=== PATIENT | female | born 1980 | race Caucasian/White ===

== ENCOUNTER → 2016-10-01 | Outpatient (CLI) | payer BC ==
--- NOTE | 2016-10-01 08:45 | US ---
EXAMINATION TYPE: US pelvic complete DATE OF EXAM: 10/01/2016 COMPARISON: NONE CLINICAL HISTORY: 36-year-old female N92.1 Excessive and frequent menstruation with pelvic pain durin g first 2 days of menses, tubal ligation 11 years ago TECHNIQUE: Transabdominal (TA) FINDINGS: Date of LMP: 1.5 weeks ago Uterus: Anteverted measuring 8.6 x 4.2 x 5.6 cm slight myometrial heterogeneity. Endometrial Stripe: 1.0 cm, within normal limits. Right Ovary: 4.0 x 1.7 x 2.7 cm for a volume of 9.3 mL. Left Ovary: 3.7 x 2.3 x 2.2 cm for a volume of 9.6 mL. Follicular changes present on both sides. Small amount of pelvic free fluid likely physiologic. No evident adnexal abnormality. IMPRESSION: Small amount of pelvic free fluid likely physiologic. Slight myometrial heterogeneity may be seen in the setting of diffuse small fibroid change or adenomyosis.
== END | disposition home or self-care (01) ==
LOC: RADUSWWP 06:56
PROVIDERS: ATTEND Family Medicine
DX: N92.1 Excessive and frequent menstruation with irregular cycle (principal)
CPT/HCPCS: 76856

== ENCOUNTER → 2016-11-03 | Outpatient (CLI) | payer BC ==
[2016-11-03 11:06] LABS: Basophils % (A) 1 %; CH 33.1; CHCM 33.3; Eosinophils # (A) 0.2 k/uL (0-0.7); Eosinophils % (A) 3 %; HCT 41.9 % (34.0-46.0); HDW 2.12; HGB 13.2 gm/dL (11.4-16.0); Luc # (Auto) 0.11; Luc % (Auto) 2; Lymphocytes # (A) 2.1 k/uL (1.0-4.8); Lymphocytes % (A) 30 %; MCH 31.5 pg (25.0-35.0); MCHC 31.5 g/dL (31.0-37.0); MCV 99.7 fL (80.0-100.0); Mean Platelet Volume 8.8; Monocytes # (A) 0.3 k/uL (0-1.0); Monocytes % (A) 5 %; Neutrophils % (A) 60 %; RDW 12.9 % (11.5-15.5); WBC 6.8 k/uL (3.8-10.6); WBC (Perox) 6.91
== END | disposition home or self-care (01) ==
LOC: LABPAT 10:38
PROVIDERS: ATTEND Obstetrics & Gynecology
DX: Z01.812 Encounter for preprocedural laboratory examination (principal)
CPT/HCPCS: 85025

== ENCOUNTER 2016-11-10 06:29 | Day surgery (SDC) | payer BC ==
[2016-11-03 12:56] VITALS: BMI 25.0
--- NOTE | 2016-11-09 12:31 | P.HPOB ---
History of Present Illness H&P Date: 11/09/16 Chief Complaint: Menorrhagia, dysmenorrhea This is a 36-year-old female 2 para 2, who presents for dilation and curettage with hysteroscopy and NovaSure endometrial ablation due to menorrhagia with regular cycle and dysmenorrhea. Her menses are occurring approximately every 28 days and lasting 5-7 days with the first couple days very heavy to where she has to change pads every couple hours. In addition she gets significant cramping and lower abdominal and back pain. The pain radiates down to her lower back and thighs. She occasionally has dyspareunia also. She has been using Tylenol with some relief. Her dysmenorrhea has been going on for almost 10 years. Her painful intercourse has been present since the of her last child. She has had a tubal ligation. Her pelvic ultrasound showed a uterus measuring 8.6 x 4.2 x 5.6 cm with an endometrial stripe thickness of 1 cm. Both ovaries appeared normal size with small follicular change noted. OB history: . History of 2 vaginal deliveries. Gynecologic history: She has had a tubal ligation. She was treated for chlamydia many years ago. Social history: She is and works in a factory. Review of Systems Constitutional: Denies chills, Denies fever Eyes: denies blurred vision, denies pain Ears, nose, mouth and throat: Denies headache, Denies sore throat Cardiovascular: Denies chest pain, Denies shortness of breath Respiratory: Denies cough Gastrointestinal: Reports abdominal pain Genitourinary: Reports dysmenorrhea, Reports dyspareunia, Reports pelvic pain, Denies Menstruation: Reports period heavy Musculoskeletal: Reports low back pain Integumentary: Denies pruritus, Denies rash Neurological: Denies numbness, Denies weakness Psychiatric: Denies anxiety, Denies depression Endocrine: Denies fatigue, Denies weight change Past Medical History Past Medical History: Hyperlipidemia, Musculoskeletal Disorder (Scoliosis, degenerative disc disease), Osteoarthritis (OA) Additional Past Medical History / Comment(s): arthritis luis knees and lower back , hearing loss luis ears, occ migraines History of Any Multi-Drug Resistant Organisms: None Reported Past Surgical History: Cholecystectomy, Ear Surgery, Tubal Ligation Additional Past Surgical History / Comment(s): reconstruction left ear/ tubes in ears, Past Anesthesia/Blood Transfusion Reactions: Motion Sickness, Postoperative Nausea & Vomiting (PONV) Additional Past Anesthesia/Blood Transfusion Reaction / Comment(s): hx PONV with general Past Psychological History: No Psychological Hx Reported Smoking Status: Current every day smoker Past Alcohol Use History: None Reported Past Drug Use History: None Reported - Past Family History Mother Family Medical History: Cancer (Cervical) Medications and Allergies Home Medications Medication Instructions Recorded Confirmed Type Acetaminophen Tab [Tylenol Tab] 1,000 mg PO Q6HR PRN 11/03/16 11/03/16 History Cholecalciferol [Vitamin D3] 5,000 unit PO DAILY 11/03/16 11/03/16 History [place]-3 Fatty Acids/Fish Oil [Fish 1 each PO DAILY 11/03/16 11/03/16 History Oil 1,000 mg Softgel] Allergies Allergy/AdvReac Type Severity Reaction Status Date / Time Milk Containing Products Allergy congestion Verified 11/03/16 12:46 [Dairy] pollen extracts Allergy congestion Verified 11/03/16 12:46 wheat Allergy congestion Verified 11/03/16 12:46 Exam Osteopathic Statement: *. No significant issues noted on an osteopathic structural exam other than those noted in the History and Physical/Consult. HEENT: Within normal limits Heart: Regular rate and rhythm Lungs: Clear to auscultation bilaterally Abdomen: Soft, nontender Pelvic exam: Uterus is retroverted, nontender, with no adnexal masses palpated but tenderness noted in bilateral adnexa. Extremities: Negative Homans Assessment and Plan (1) Menorrhagia with regular cycle Status: Acute (2) Dysmenorrhea Status: Acute Plan: Proceed with dilation and curettage with hysteroscopy and NovaSure endometrial ablation. I have discussed the risks, benefits, and alternative therapies for the above- mentioned procedure and for both sedation/anesthesia as well as necessary blood products administration, if indicated, as they pertain to this patient. The patient has indicated her understanding and acceptance of the risks and procedures discussed.
[~2016-11-10 06:29] MED LIST: DEXAMETHASONE SOD PHOSPHATE 10 MG/ML 1 ML VIAL IV ONE; HYDROmorphone 1 MG/ML 1 ML SYRINGE IVP PRN; LACTATED RINGERS 1,000 ML IV SCH; LIDOCAINE 1% 20 ML VIAL (10MG/ML) FOR IV START INTRADERMA PRN; ONDANSETRON 4 MG/2 ML VIAL IVP ONE; Pre Op ABX Message 1 EACH MISC MISCELLANE ONE; SCOPOLAMINE 1.5MG/72HR PATCH TRANSDERM ONE
[2016-11-10] MEDS ORDERED: GLYCOPYRROLATE 0.2 MG/ML 2 ML VIAL ONE (07:34)
[2016-11-10] MEDS ORDERED: fentaNYL (PF) 50 MCG/ML 2 ML AMP ONE (07:34)
[2016-11-10] MEDS ORDERED: MIDAZOLAM 2 MG/2 ML VIAL ONE (07:34)
[2016-11-10] MEDS ORDERED: PROPOFOL 10 MG/ML 20 ML VIAL IV ONE (07:34)
[2016-11-10] MEDS ORDERED: LIDOCAINE 1% INJ 10MG/ML (20 ML MDV) ONE (07:34)
[2016-11-10] MEDS ORDERED: KETOROLAC 30 MG/ML 1 ML VIAL ONE (07:34)
--- NOTE | 2016-11-10 08:01 | P.OP ---
Date of Procedure: 11/10/16 Preoperative Diagnosis: Menorrhagia with regular cycle Dysmenorrhea Postoperative Diagnosis: Same Procedure(s) Performed: Hysteroscopy with dilation and curettage and NovaSure endometrial ablation Implants: Anesthesia: other (Mask general) Surgeon: Luz Kelly Estimated Blood Loss (ml): 2 Pathology: other (Endometrial curettings) Condition: stable Disposition: same day Indications for Procedure: This is a 36-year-old female 2 para 2, who presents for dilation and curettage with hysteroscopy and NovaSure endometrial ablation due to menorrhagia with regular cycle and dysmenorrhea. Her menses are occurring approximately every 28 days and lasting 5-7 days with the first couple days very heavy to where she has to change pads every couple hours. In addition she gets significant cramping and lower abdominal and back pain. The pain radiates down to her lower back and thighs. She occasionally has dyspareunia also. She has been using Tylenol with some relief. Her dysmenorrhea has been going on for almost 10 years. Her painful intercourse has been present since the of her last child. She has had a tubal ligation. Her pelvic ultrasound showed a uterus measuring 8.6 x 4.2 x 5.6 cm with an endometrial stripe thickness of 1 cm. Both ovaries appeared normal size with small follicular change noted. Operative Findings: Uterus is sounded to 7-1/2 cm. Cervix is sounded to 3 cm. Upon hysteroscopy, a fairly dyssynchronous appearance was noted. Both tubal ostia were visualized. A moderate amount of endometrial curettings are obtained. No adnexal masses are palpated. Uterus is found to be anteverted. Description of Procedure: The patient is taken to the operating room. She is placed in the dorsal lithotomy position after general anesthesia was given. She is prepped and draped in the normal sterile fashion. Bladder is drained with a catheter and then removed. Pelvic exam is performed under anesthesia. Uterus is found to be anteverted with no adnexal masses. She is placed in slight Trendelenburg position. A right angle retractor is used to visualize the cervix. The anterior lip of the cervix is grasped with a single-tooth tenaculum. Cervix is sounded to 3 cm. Uterus is sounded to 7.5 cm. Cervix is gently dilated with Wray dilators until a hysteroscope could be passed. Hysteroscopy is performed using normal saline. The above noted findings are noted. Next a polyp forceps is introduced. And a minimal amount of tissue was obtained. Next medium-sized size sharp curette was placed. A moderate amount of endometrial curettings were obtained. Next NovaSure array was inserted into the endometrial cavity. Length was set at 4.5 cm and width was determined to be 3.8 cm. Next cavity assessment was completed and passed on the first try. Next NovaSure array was fired at 94 W for 98 seconds. Next the array was removed, inspected and then discarded. Next the hysteroscope was reinserted. Uniform charring was noted. Pictures were taken. Hysteroscope was removed. Single-tooth tenaculum was removed from the anterior lip of the cervix. Minimal bleeding was noted. All other instruments removed from the vagina. Sponge counts were correct. Patient is taken to recovery room in stable condition.
[2016-11-10 08:21] VITALS: TEMP 97.3
[2016-11-10 09:33] VITALS: RESP 16
[2016-11-10 09:41] VITALS: BP 127/84; PULSE 68
== END 2016-11-10 10:02 | disposition home or self-care (01) ==
LOC: OR 06:29
PROVIDERS: ATTEND Obstetrics & Gynecology
DX: N92.0 Excessive and frequent menstruation with regular cycle (principal); N94.6 Dysmenorrhea, unspecified; N94.10 Unspecified dyspareunia; F17.200 Nicotine dependence, unspecified, uncomplicated; Z98.51 Tubal ligation status
CPT/HCPCS: 81025; 88305; 58563; J2250; J1100; J2405; J2001; J3010; J1885; J2704

== ENCOUNTER → 2017-06-15 | Outpatient (CLI) | payer BC ==
--- NOTE | 2017-06-15 07:39 | MM ---
Reason for exam: screening (asymptomatic). Baseline mammogram. History: Family history of breast cancer in maternal grandmother. Physical Findings: Nurse did not find any significant physical abnormalities on exam. MG Screening Mammo w CAD Bilateral CC and MLO view(s) were taken. There are scattered fibroglandular densities. Finding: There are typically benign round calcifications in the right breast. There is no discrete abnormality. These results were verbally communicated with the patient and result sheet given to the patient on 06/15/17. ASSESSMENT: Benign, BI-RAD 2 RECOMMENDATION: Routine screening mammogram of both breasts at age 39.
--- NOTE | 2017-06-15 08:31 | CT ---
EXAMINATION TYPE: CT brain w con DATE OF EXAM: 06/15/2017 COMPARISON: NONE HISTORY: Headaches and family history of Aneurysm CT DLP: 999.8 mGycm Automated exposure control for dose reduction was used. CONTRAST: CT scan of the head is performed with IV Contrast, patient injected with 100 mL of Isovue 300. FINDINGS: There is no abnormal enhancing mass or midline shift identified. The ventricles and sulci are within normal limits in size. The globes are intact and the visualized sinuses are clear. Postsurgical yumiko nge involving the mastoid air cells on the left. IMPRESSION: No acute intracranial process. If there is concern for aneurysm a [facility] [place] would b e recommended.
== END | disposition home or self-care (01) ==
LOC: RADMAMWWP 06:57
PROVIDERS: ATTEND Family Medicine
DX: Z12.31 Encounter for screening mammogram for malignant neoplasm of breast (principal); G44.59 Other complicated headache syndrome; Z80.3 Family history of malignant neoplasm of breast; Z82.49 Family history of ischemic heart disease and other diseases of the circulatory system
CPT/HCPCS: 77067; 70460; Q9967

== ENCOUNTER 2019-07-30 06:15 | Emergency (ER) | payer BC ==
[2019-07-30 06:23] VITALS: BP 142/87; PULSE 77; RESP 18; TEMP 98.7
[2019-07-30] MEDS ORDERED: HYDROcodone/APAP 5-325MG 1 EACH TAB PO STA (06:32)
[2019-07-30] MEDS ORDERED: ACET/COD 300 MG/30 MG STARTER PACK 6 TAB BTL PO STA (06:32)
--- NOTE | 2019-07-30 06:35 | ED ---
ENT HPI - General Chief complaint: Dental/Oral Stated complaint: tooth infection Time Seen by Provider: 07/30/19 06:24 Source: patient, family, RN notes reviewed Mode of arrival: ambulatory Limitations: no limitations - History of Present Illness Initial comments: This a 38-year-old female presents emergency Department chief complaint of lower dental pain. Patient states that she's had already to move and upper aspect. Patient states that she has very poor dentition states that she needs her teeth removed but states that she can't see her dentist currently because her dentist is closed. Denies any. Chills no trismus. Denies any difficulty swallowing. - Related Data Home Medications Medication Instructions Recorded Confirmed Acetaminophen Tab [Tylenol Tab] 1,000 mg PO Q6HR PRN 11/03/16 11/10/16 Cholecalciferol [Vitamin D3] 5,000 unit PO DAILY 11/03/16 11/10/16 [place]-3 Fatty Acids/Fish Oil [Fish 1 each PO DAILY 11/03/16 11/10/16 Oil 1,000 mg Softgel] Previous Rx's Medication Instructions Recorded Ibuprofen [Motrin] 600 mg PO Q8HR PRN #20 tab 07/30/19 Penicillin V Potassium [Pen Vee K] 500 mg PO QID #40 tablet 07/30/19 Allergies Allergy/AdvReac Type Severity Reaction Status Date / Time Milk Containing Products Allergy congestion Verified 07/30/19 06:22 [Dairy] pollen extracts Allergy congestion Verified 07/30/19 06:22 wheat Allergy congestion Verified 07/30/19 06:22 Review of Systems ROS Statement: Those systems with pertinent positive or pertinent negative responses have been documented in the HPI. ROS Other: All systems not noted in ROS Statement are negative. Past Medical History Past Medical History: No Reported History Additional Past Medical History / Comment(s): pre-canerous cells uterus, arthritis luis knees, hearing loss luis ears, begining stages of carpal tunnel luis wrists History of Any Multi-Drug Resistant Organisms: None Reported Past Surgical History: Tubal Ligation Additional Past Surgical History / Comment(s): ear surgery Past Anesthesia/Blood Transfusion Reactions: No Reported Reaction, Postoperative Nausea & Vomiting (PONV) Past Psychological History: Bipolar Smoking Status: Current every day smoker Past Alcohol Use History: Rare Past Drug Use History: Marijuana General Exam Limitations: no limitations General appearance: alert, in no apparent distress Head exam: Present: atraumatic, normocephalic, normal inspection Eye exam: Present: normal appearance, PERRL, EOMI. Absent: scleral icterus, conjunctival injection, periorbital swelling ENT exam: Present: mucous membranes moist, TM's normal bilaterally, normal external ear exam. Absent: normal oropharynx (Edentulous, multiple dental caries, dental fractures. No drainable abscess.) Neck exam: Present: normal inspection, full ROM. Absent: tenderness, meningismus, lymphadenopathy Respiratory exam: Present: normal lung sounds bilaterally. Absent: respiratory distress, wheezes, rales, rhonchi, stridor Cardiovascular Exam: Present: regular rate, normal rhythm, normal heart sounds. Absent: systolic murmur, diastolic murmur, rubs, gallop, clicks Neurological exam: Present: alert, oriented X3, CN II-XII intact, reflexes normal. Absent: motor sensory deficit Skin exam: Present: warm, dry, intact, normal color. Absent: rash Course Vital Signs 07/30/19 06:19 Temperature 98.7 F Pulse Rate 77 Respiratory 18 Rate Blood Pressure 142/87 O2 Sat by Pulse 99 Oximetry Medical Decision Making - Medical Decision Making Patient has dental infection, dental fractures and dental caries. Patient was placed on antibiotics, pain control provided. Return parameters were discussed. Disposition Clinical Impression: Dental caries, Toothache, Dental infection Disposition: HOME SELF-CARE Condition: Stable Instructions (If sedation given, give patient instructions): Toothache (ED) Additional Instructions: Please return to the Emergency Department if symptoms worsen or any other concerns. Prescriptions: Ibuprofen [Motrin] 600 mg PO Q8HR PRN #20 tab PRN Reason: Pain Penicillin V Potassium [Pen Vee K] 500 mg PO QID #40 tablet Is patient prescribed a controlled substance at d/c from ED?: No Referrals: Jalil Cho MD [Primary Care Provider] - 1-2 days Time of Disposition: 06:35
== END 2019-07-30 06:44 | disposition home or self-care (01) ==
LOC: EC 06:15
DX: K04.7 Periapical abscess without sinus (principal); K02.9 Dental caries, unspecified; K03.81 Cracked tooth; F17.200 Nicotine dependence, unspecified, uncomplicated; Z91.011 Allergy to milk products; Z91.018 Allergy to other foods; Z91.048 Other nonmedicinal substance allergy status
CPT/HCPCS: 99282

== ENCOUNTER 2019-07-30 23:51 | Emergency (ER) | payer BC ==
[2019-07-30 23:58] VITALS: BP 128/86; PULSE 87; RESP 18; TEMP 99
[2019-07-31] MEDS ORDERED: AMOXIC-POT CLAV 875MG STARTER PACK 2 TAB BTL PO STA (00:14)
[2019-07-31] MEDS ORDERED: traMADol 50 MG STARTER PACK 3 TAB BTL PO STA (00:14)
--- NOTE | 2019-07-31 00:16 | ED ---
ENT HPI - General Chief complaint: Dental/Oral Stated complaint: Recheck, tooth infection Time Seen by Provider: 07/30/19 23:52 Source: patient Mode of arrival: ambulatory Limitations: no limitations - History of Present Illness Initial comments: This patient is a 38-year-old woman presenting for left mandibular tooth pain. The patient states that this been going on for going on 2 days now. She was seen here earlier in the day and was given prescription for penicillin and ibuprofen 600 mg. The patient states that her discharge papers directed her to return should any swelling develop and she has noticed swelling along the left mandible. In addition she states that the only thing that seems to give her relief is when she takes ibuprofen 800 mg. She has taken a total of 3 doses of the penicillin. The patient is not having any difficulty with speech or swallowing or breathing. She has not noticed any neck swelling. No fever or chills. MD complaint: tooth pain Onset/Timin -: days(s) Severity: severe Quality: aching Consistency: constant Improves with: none Worsens with: none Context- Dental: history of dental caries Associated Symptoms: gum swelling, toothache - Related Data Home Medications Medication Instructions Recorded Confirmed Acetaminophen Tab [Tylenol Tab] 1,000 mg PO Q6HR PRN 11/03/16 11/10/16 Cholecalciferol [Vitamin D3] 5,000 unit PO DAILY 11/03/16 11/10/16 [place]-3 Fatty Acids/Fish Oil [Fish 1 each PO DAILY 11/03/16 11/10/16 Oil 1,000 mg Softgel] Previous Rx's Medication Instructions Recorded Ibuprofen [Motrin] 600 mg PO Q8HR PRN #20 tab 07/30/19 Penicillin V Potassium [Pen Vee K] 500 mg PO QID #40 tablet 07/30/19 Amoxicillin/Potassium Clav 1 tab PO Q12HR 10 Days #20 tab 07/31/19 [Augmentin 875-125 Tablet] Ibuprofen 800 mg PO TID #20 tablet 07/31/19 traMADol HCl [Ultram] 50 mg PO Q6H PRN #20 tab 07/31/19 Allergies Allergy/AdvReac Type Severity Reaction Status Date / Time Milk Containing Products Allergy congestion Verified 07/30/19 23:58 [Dairy] pollen extracts Allergy congestion Verified 07/30/19 23:58 wheat Allergy congestion Verified 05/09/20 23:58 Review of Systems ROS Statement: Those systems with pertinent positive or pertinent negative responses have been documented in the HPI. ROS Other: All systems not noted in ROS Statement are negative. Constitutional: Denies: fever, chills Eyes: Denies: eye pain, vision change ENT: Reports: dental pain. Denies: ear pain, throat pain, hearing loss Respiratory: Denies: cough, dyspnea Cardiovascular: Denies: chest pain, palpitations Gastrointestinal: Denies: abdominal pain, vomiting Skin: Denies: rash Neurological: Denies: headache Past Medical History Past Medical History: No Reported History Additional Past Medical History / Comment(s): pre-canerous cells uterus, arthritis luis knees, hearing loss luis ears, begining stages of carpal tunnel luis wrists History of Any Multi-Drug Resistant Organisms: None Reported Past Surgical History: Tubal Ligation Additional Past Surgical History / Comment(s): ear surgery Past Anesthesia/Blood Transfusion Reactions: No Reported Reaction, Postoperative Nausea & Vomiting (PONV) Past Psychological History: Bipolar Smoking Status: Current every day smoker Past Alcohol Use History: Rare Past Drug Use History: Marijuana General Exam Limitations: no limitations General appearance: alert, in no apparent distress Head exam: Present: atraumatic, normocephalic Eye exam: Present: normal appearance. Absent: scleral icterus, conjunctival injection ENT exam: Present: other (Patient does have a number of teeth with moderate to extensive caries. There is some soft tissue swelling adjacent to the mandible, but no palpable abscess. There is no neck or submandibular fullness or tenderness.) Neck exam: Present: normal inspection, full ROM. Absent: tenderness, meningismus, lymphadenopathy Skin exam: Present: warm, dry, intact, normal color. Absent: rash Course Vital Signs 07/30/19 23:56 Temperature 99 F Pulse Rate 87 Respiratory 18 Rate Blood Pressure 128/86 O2 Sat by Pulse 99 Oximetry Disposition Clinical Impression: Dental caries, Toothache Disposition: HOME SELF-CARE Condition: Good Instructions (If sedation given, give patient instructions): Toothache (ED) Prescriptions: Amoxicillin/Potassium Clav [Augmentin 875-125 Tablet] 1 tab PO Q12HR 10 Days #20 tab Ibuprofen 800 mg PO TID #20 tablet traMADol HCl [Ultram] 50 mg PO Q6H PRN #20 tab PRN Reason: Pain Is patient prescribed a controlled substance at d/c from ED?: Yes When asked, does pt state using other controlled substances?: Yes If prescribed controlled substance>3 days was MAPS reviewed?: Prescribed <3 Days If opioid is for acute pain is fill amount 7 days or less?: Yes If Rx opioid, was Start Talking consent form obtained?: Yes Referrals: Jalil Cho MD [Primary Care Provider] - 1-2 days
== END 2019-07-31 00:39 | disposition home or self-care (01) ==
LOC: EC 23:51
DX: K08.89 Other specified disorders of teeth and supporting structures (principal); K02.9 Dental caries, unspecified; F17.200 Nicotine dependence, unspecified, uncomplicated; Z91.011 Allergy to milk products; Z91.018 Allergy to other foods
CPT/HCPCS: 99282

== ENCOUNTER 2019-08-29 00:42 | Emergency (ER) | payer BC ==
[2019-08-29 00:46] VITALS: RESP 18; TEMP 98.3
[2019-08-29] MEDS ORDERED: KETOROLAC 30 MG/ML 1 ML VIAL IM STA (00:57)
[2019-08-29] MEDS ORDERED: ACET/COD 300 MG/30 MG STARTER PACK 6 TAB BTL PO STA (00:57)
[2019-08-29] MEDS ORDERED: MORPHINE SULFATE 4 MG/ML SYRINGE IM STA (00:57)
[2019-08-29] MEDS ORDERED: CLINDAMYCIN 150 MG CAP PO STA (00:57)
--- NOTE | 2019-08-29 01:00 | ED ---
General Adult HPI - General Chief complaint: Dental/Oral Stated complaint: Facial Abscess Time Seen by Provider: 08/29/19 00:48 Source: patient Mode of arrival: ambulatory Limitations: no limitations - History of Present Illness Initial comments: 38-year-old female patient presents to the emergency department today for evaluation of right-sided dental pain and facial swelling. Patient states that symptoms started early this morning. States she was recently treated for dental infection on the left side but did complete all antibiotics. Due to the kim virus pandemic patient's temp is has not been open, the open on Thursday. She denies any current fever or chills. Denies nausea or vomiting. Denies any difficulty swallowing. Denies any swelling beneath her tongue her tongue discomfort. Patient denies any recent rash, cough, shortness of breath, chest pain, abdominal pain, diarrhea, constipation, back pain, numbness, tingling, dizziness, weakness, hematuria, dysuria, urinary urgency, urinary frequency, headache, visual changes, or any other complaints. - Related Data Home Medications Medication Instructions Recorded Confirmed Acetaminophen Tab [Tylenol Tab] 1,000 mg PO Q6HR PRN 11/03/16 11/10/16 Cholecalciferol [Vitamin D3] 5,000 unit PO DAILY 11/03/16 11/10/16 [place]-3 Fatty Acids/Fish Oil [Fish 1 each PO DAILY 11/03/16 11/10/16 Oil 1,000 mg Softgel] Previous Rx's Medication Instructions Recorded Ibuprofen [Motrin] 600 mg PO Q8HR PRN #20 tab 07/30/19 Penicillin V Potassium [Pen Vee K] 500 mg PO QID #40 tablet 07/30/19 Amoxicillin/Potassium Clav 1 tab PO Q12HR 10 Days #20 tab 07/31/19 [Augmentin 875-125 Tablet] Ibuprofen 800 mg PO TID #20 tablet 07/31/19 traMADol HCl [Ultram] 50 mg PO Q6H PRN #20 tab 07/31/19 Clindamycin HCl 300 mg PO Q6H #40 cap 08/29/19 Ibuprofen [Motrin] 600 mg PO Q8HR PRN #30 tab 08/29/19 Allergies Allergy/AdvReac Type Severity Reaction Status Date / Time Milk Containing Products Allergy congestion Verified 08/29/19 00:47 [Dairy] pollen extracts Allergy congestion Verified 08/29/19 00:47 wheat Allergy congestion Verified 08/29/19 00:47 Review of Systems ROS Statement: Those systems with pertinent positive or pertinent negative responses have been documented in the HPI. ROS Other: All systems not noted in ROS Statement are negative. Past Medical History Past Medical History: No Reported History Additional Past Medical History / Comment(s): pre-canerous cells uterus, arthritis luis knees, hearing loss luis ears, begining stages of carpal tunnel luis wrists, History of Any Multi-Drug Resistant Organisms: None Reported Past Surgical History: Tubal Ligation Additional Past Surgical History / Comment(s): ear surgery, Past Anesthesia/Blood Transfusion Reactions: No Reported Reaction, Postoperative Nausea & Vomiting (PONV) Past Psychological History: Bipolar Smoking Status: Current every day smoker Past Alcohol Use History: Rare Past Drug Use History: Marijuana General Exam Limitations: no limitations General appearance: alert, in no apparent distress, other (This is a well- developed, well-nourished adult female patient in no acute distress. Vital signs upon presentation are temperature 98.3F, pulse 64, respirations 18, blood pressure 124/84, pulse ox 94% on room air.) Eye exam: Present: normal appearance, PERRL, EOMI. Absent: scleral icterus, conjunctival injection, periorbital swelling ENT exam: Present: normal oropharynx, mucous membranes moist, other (There is right-sided facial swelling, poor dentition to the right lower dentition. No evidence for drainable abscess. There is surrounding gingival erythema or hyperplasia.) Respiratory exam: Present: normal lung sounds bilaterally. Absent: respiratory distress, wheezes, rales, rhonchi, stridor Cardiovascular Exam: Present: regular rate, normal rhythm, normal heart sounds. Absent: systolic murmur, diastolic murmur, rubs, gallop, clicks Course Vital Signs 08/29/19 00:42 Temperature 98.3 F Pulse Rate 64 Respiratory 18 Rate Blood Pressure 124/84 O2 Sat by Pulse 94 L Oximetry Medical Decision Making - Medical Decision Making 38-year-old female patient presents to the emergency department today for evaluation of right lower dental pain and facial swelling. Physical examination did reveal poor dentition with multiple broken teeth to the right lower dentition. There is surrounding gingival erythema and hyperplasia. No evidence for drainable abscess. We will start clindamycin give pain medications. Her dentist opens Thursday she is going to call for an appointment then. She is instructed to follow-up with her primary care physician for recheck in 1-2 days. Return parameters were discussed in detail. She verbalizes understanding and agrees with this plan. Disposition Clinical Impression: Dental abscess Disposition: HOME SELF-CARE Condition: Good Instructions (If sedation given, give patient instructions): Dental Abscess (ED) Additional Instructions: Take medications as directed. Follow up with the dentist as soon as possible. Follow-up with her primary care physician for recheck in 1-2 days. Return to the emergency department immediately for any new, worsening, or concerning symptoms. Prescriptions: Clindamycin HCl 300 mg PO Q6H #40 cap Ibuprofen [Motrin] 600 mg PO Q8HR PRN #30 tab PRN Reason: Pain Is patient prescribed a controlled substance at d/c from ED?: No Referrals: Jalil Cho MD [Primary Care Provider] - 1-2 days Time of Disposition: 01:00
[2019-08-29 01:34] VITALS: BP 120/83; PULSE 75
== END 2019-08-29 01:33 | disposition home or self-care (01) ==
LOC: EC 00:42
DX: K04.7 Periapical abscess without sinus (principal); K06.1 Gingival enlargement; K08.89 Other specified disorders of teeth and supporting structures; S02.5XXA Fracture of tooth (traumatic), initial encounter for closed fracture; F17.200 Nicotine dependence, unspecified, uncomplicated; Z91.048 Other nonmedicinal substance allergy status; Z91.018 Allergy to other foods; Z91.011 Allergy to milk products; X58.XXXA Exposure to other specified factors, initial encounter
CPT/HCPCS: 99283; 96372 ×2; J2270; J1885

== ENCOUNTER → 2020-11-01 | Outpatient (CLI) | payer OTHER ==
--- NOTE | 2020-11-01 16:07 | XR ---
Result: Clinical History: Pain. Comparison: None available. Technique: 3 views of the left shoulder. Findings: The bone mineralization is appropriate for age. No acute fracture or dislocation is seen. The acromioclavicular and glenohumeral joints are preserve d . The humeral head is well-seated in the glenoid. The visualized lung is clear. Impression: No acute osseous abnormality.
== END | disposition home or self-care (01) ==
LOC: RADXRMAIN 15:47
PROVIDERS: ATTEND Emergency Medicine
DX: M25.512 Pain in left shoulder (principal)

== ENCOUNTER → 2024-02-10 | Outpatient (CLI) | payer BC ==
--- NOTE | 2024-02-12 08:34 | MM ---
Reason for Exam: Screening (asymptomatic). Last mammogram was performed 6 year(s) and 8 month(s) ago. Patient History: Menarche at age 14. First Full-Term at age 18. Hysterectomy at age 43. Patient used Hormonal Contraceptives for 4 years. Maternal grandmother had breast cancer. Risk Values: Nafisa 5 year model risk: 0.5%. NCI Lifetime model risk: 6.5%. Prior Study Comparison: 06/15/2017 Bilateral Screening Mammogram, [facility]. Tissue Density: There are scattered areas of fibroglandular density. Findings: Analyzed By CAD. There is a new group of loosely clustered microcalcifications retroareolar left breast. Additional views are recommended. Benign punctate calcifications right breast. No mass or distortion seen. Overall Assessment: Incomplete: need additional imaging evaluation, BI-RAD 0 Management: Diagnostic Mammogram of the left breast. . Patient should continue monthly self-breast exams. A clinical breast exam by your physician is recommended on an annual basis. This exam should not preclude additional follow-up of suspicious palpable abnormalities. Note on Nafisa scores and lifetime risk: 1. A Nafisa score greater than 3% is considered moderate risk. If this is the case, consider specialist referral to assess eligibility for a risk reducing agent. 2. If overall lifetime risk for the development of breast cancer is 20% or higher, the patient may qualify for future screening with alternating mammogram and breast MRI. [facility], , 02/12/2024 8:31 AM. Electronically signed and approved by: Kendall Lopez M.D. Radiologis
== END | disposition home or self-care (01) ==
LOC: RADMAMWWP 11:00
PROVIDERS: ATTEND Family Medicine
DX: Z12.31 Encounter for screening mammogram for malignant neoplasm of breast (principal); R92.323 Mammographic fibroglandular density, bilateral breasts; Z80.3 Family history of malignant neoplasm of breast
CPT/HCPCS: 77063; 77067

== ENCOUNTER → 2024-02-24 | Outpatient (CLI) | payer BC ==
--- NOTE | 2024-02-24 14:28 | MM ---
Reason for Exam: Additional evaluation requested from abnormal screening. Last screening mammogram was performed less than 1 month ago. Patient History: Menarche at age 14. First Full-Term at age 18. Hysterectomy at age 43. Patient used Hormonal Contraceptives for 4 years. Maternal grandmother had breast cancer. Risk Values: Nafisa 5 year model risk: 0.5%. NCI Lifetime model risk: 6.5%. Prior Study Comparison: 06/15/2017 Bilateral Screening Mammogram, [facility]. 02/10/2024 Bilateral MG 3D screening mammo w/cad, [facility]. Tissue Density: Left: The breasts are heterogeneously dense, which may obscure small masses. Findings: Analyzed By CAD. There are grouped heterogeneous calcifications spanning approximately 2.5 cm within the lateral subareolar left breast. These are indeterminant and further tissue sampling recommended. Overall Assessment: Suspicious, BI-RAD 4 Management: Stereotactic Core Biopsy of the left breast. Results were given to the patient verbally at the time of exam. [facility], , 02/24/2024 2:25 PM. Electronically signed and approved by: Danny Larios M.D. Radiologist
== END | disposition home or self-care (01) ==
LOC: RADMAMWWP 10:13
PROVIDERS: ATTEND Family Medicine
DX: R92.8 Other abnormal and inconclusive findings on diagnostic imaging of breast (principal); Z80.3 Family history of malignant neoplasm of breast; R92.332 Mammographic heterogeneous density, left breast
CPT/HCPCS: 77061; 77065

== ENCOUNTER → 2024-04-01 | Outpatient (CLI) | payer BC ==
--- NOTE | 2024-04-05 17:25 | P.PCN ---
Date of Procedure: 04/01/24 Preoperative Diagnosis: Microcalcifications of concern left breast Postoperative Diagnosis: Same Procedure(s) Performed: Left breast stereotactic core biopsy Anesthesia: local Surgeon: Alva Villagomez Pathology: other (Breast tissue/radiograph of specimen reveals microcalcifications) Disposition: same day Indications for Procedure: Microcalcifications of concern left breast Operative Findings: Microcalcifications of concern in specimen Description of Procedure: Marlen is a 43-year-old female who underwent a mammogram. She was noted to have microcalcifications of concern in the periareolar region of her left breast. She was recommended to undergo stereotactic core biopsy. The patient was brought to the stereotactic core biopsy room. She was positioned in the upright chair. A grating machine operator film was obtained. The area of concern was identified. The lesion was targeted. The breast was prepped using chlorhexidine. A 9 gauge vacuum-assisted core rotating biopsy needle was driven to the correct coordinates. A prefire film was obtained. The needle was noted to be in the correct location. The needle was fired. A post fire film was obtained. The needle was noted to be in the correct location. Core biopsy specimens were obtained. Radiograph of the specimens revealed the calcifications of concern had been adequately sampled. A marking clip was deployed and left behind. The patient tolerated the procedure in stable condition. Breast was anesthetized using 1% lidocaine 20 cc. The patient will follow-up with Dr. Richardson in 1 week. Specimen was sent to pathology.
== END ==
LOC: WWCWWP 07:23
PROVIDERS: ATTEND Surgery
DX: Z53.9 Procedure and treatment not carried out, unspecified reason (principal)

== ENCOUNTER → 2024-04-01 | Day surgery (SDC) | payer BC ==
[~2024-04-01] MED LIST changes: +ALPRAZolam 0.25 MG TAB PO PRN; -DEXAMETHASONE SOD PHOSPHATE 10 MG/ML 1 ML VIAL IV ONE; -HYDROmorphone 1 MG/ML 1 ML SYRINGE IVP PRN; -LACTATED RINGERS 1,000 ML IV SCH; -LIDOCAINE 1% 20 ML VIAL (10MG/ML) FOR IV START INTRADERMA PRN; -ONDANSETRON 4 MG/2 ML VIAL IVP ONE; -Pre Op ABX Message 1 EACH MISC MISCELLANE ONE; -SCOPOLAMINE 1.5MG/72HR PATCH TRANSDERM ONE
[2024-04-01] MEDS: ALPRAZolam 0.5 MG TAB PO PRN (07:36)
[2024-04-01 07:47] VITALS: BP 98/57; PULSE 85; RESP 16; TEMP 98.3
--- NOTE | 2024-04-01 08:14 | P.GSCN ---
History of Present Illness Consult date: 04/01/24 Reason for Consult: Microcalcifications of concern left breast Requesting physician: Jalil Cho History of present illness: Is a 43-year-old female seen in consultation for Dr. Bowers regarding a radiographic abnormality in the left breast. She underwent a bilateral screening mammogram on 02-10-2024. This revealed a new group of loosely clustered microcalcifications in the retroareolar left breast. Additional views were recommended. The additional views of the left breast were performed on 02-24-2024. This revealed grouped heterogeneous calcifications spanning 2.5 cm within the lateral subareolar left breast. This was felt to be BI-RADS 4 and stereotactic core biopsy was recommended. The mammograms were personally reviewed and interpreted and discussed with Dr. Jacome from radiology. This was found on a routine mammogram. She is not complaining of any new lumps masses or nodules of concern in either breast. She is not complaining of any nipple discharge or skin changes. She has not had any recent trauma or infection in the breast. She has never had any breast biopsies or surgery on her breast. Caffeine: coffee, pop, and energy drink daily drink coffee all day long nicotine: 1/2 PPD and also vapes; hs been smoking since 1995 chocolate: occasional BCP: used shot for 1 year hormones: not yet but is having hot flashes Family History: patient had a hysterectomy pre cancer mother: cervical cancer maternal great grandmother: breast cancer twice Hormonal History: menarche: 15 , breast fed: no, age at first : 18 periods stopped after an ablation in her 30's is having hot flashes now had a partial hysterectomy , done for pre-cancer cells Surgical History: hysterectomy gallbladder two major left ear reconstruction 8 tubes both ears Medical History: arthritis compressed disc lower back with scoliosis bipolar; depression, ADHD Social History: nicotine: as above alcohol: none drugs: none Review of Systems - Constitutional Reports sweats - EENT Eyes: denies blurred vision Ears: bilateral: decreased hearing, tinnitus Ears, nose, mouth and throat: Reports headache - Breasts bilateral: as per HPI - Cardiovascular Denies chest pain, Denies shortness of breath - Respiratory Reports as per HPI, Reports cough - Gastrointestinal Reports as per HPI - Genitourinary Genitourinary: Denies dysuria, Denies hematuria Menstruation: Reports post hysterectomy - Musculoskeletal Reports as per HPI - Integumentary Reports pruritus, Reports unusual bruising, Denies rash - Neurological Reports headaches, Denies syncope - Psychiatric Reports as per HPI - Endocrine Reports fatigue, Reports weight change - Hematologic/Lymphatic Reports easy bruising - Allergic/Immunologic Reports as per HPI, Reports seasonal allergies Past Medical History Past Medical History: No Reported History Additional Past Medical History / Comment(s): pre-canerous cells uterus, arthritis luis knees, hearing loss luis ears, begining stages of carpal tunnel luis wrists History of Any Multi-Drug Resistant Organisms: None Reported Past Surgical History: Ear Surgery, Hysterectomy, Tubal Ligation, Uterine Ablation Additional Past Surgical History / Comment(s): ear surgery. Left ear reconstruction surgery 1986. Past Anesthesia/Blood Transfusion Reactions: No Reported Reaction, Postoperative Nausea & Vomiting (PONV) Past Psychological History: ADD/ADHD, Bipolar, Depression Additional Psychological History / Comment(s): refuses medication other than Prozac Smoking Status: Current every day smoker, Vaper Past Alcohol Use History: Rare Additional Past Alcohol Use History / Comment(s): 1 ppd Past Drug Use History: None Reported Medications and Allergies Home Medications Medication Instructions Recorded Confirmed Type Cholecalciferol [Vitamin D3] 5,000 unit PO DAILY 11/03/16 04/01/24 History traMADol HCl [Ultram] 50 mg PO Q6H PRN #20 tab 07/31/19 04/01/24 Rx FLUoxetine HCL [PROzac] 20 mg PO DAILY 02/25/24 04/01/24 History Fluticasone Nasal [place] [Flonase 2 spray EA NOSTRIL BID 02/25/24 04/01/24 History Nasal [place]] Allergies Allergy/AdvReac Type Severity Reaction Status Date / Time Milk Containing Products Allergy congestion Verified 04/01/24 07:47 (Dairy) [Dairy] pollen extracts Allergy congestion Verified 04/01/24 07:47 wheat Allergy congestion Verified 04/01/24 07:47 hydromorphone [From Dilaudid] AdvReac Nausea & Verified 04/01/24 07:47 Vomiting Surgical - Exam Vital Signs Temp Pulse Resp BP 98.3 F 85 16 98/57 04/01/24 07:37 04/01/24 07:37 04/01/24 07:37 04/01/24 07:37 - General moderate distress - Eyes normal ocular movement - Neck trachea midline - Respiratory normal respiratory effort, clear to auscultation - Cardiovascular Rhythm: regular Heart Sounds: normal: S1, S2 - Abdomen Abdomen: soft, non tender, no guarding, no rigid, no rebound - Integumentary normal turgor - Neurologic no disoriented, no combative - Musculoskeletal normal gait - Psychiatric oriented to time, oriented to person, oriented to place, speech is normal, memory intact Breast Exam: BRA:38D Inspection: Bilateral grade 3 ptosis Palpation: Right breast: Multi positional exam fibrocystic changes no discrete dominant masses or nodules of concern Right axilla: No adenopathy of concern Left breast: Multi positional exam fibrocystic changes no discrete dominant masses or nodules of concern Left axilla: No adenopathy of concern tattoing over upper extermities Results Mammogram reviewed with Dr. Jacome from radiology, microcalcifications of concern left breast retroareolar region Assessment and Plan Assessment: Impression: Microcalcifications of concern left breast on mammogram performed 2023/diagnostic mammogram of left breast 02-24-2024 Plan: Stereotactic core biopsy Risk and benefits of the procedure discussed with the patient and her friend. Risk include but are not limited to bleeding, infection, reaction to the anesthetic. If adequate tissue acquisition is not obtained or the biopsy is discordant then further tissue acquisition may be necessary. They understand and she wishes to proceed. CC: Dr Cho
--- NOTE | 2024-04-06 12:10 | MM ---
Date of Procedure: 04/01/24 Preoperative Diagnosis: Microcalcifications of concern left breast Postoperative Diagnosis: Same Procedure(s) Performed: Left breast stereotactic core biopsy Anesthesia: local Surgeon: Alva Villagomez Pathology: other (Breast tissue/radiograph of specimen reveals microcalcifications) Disposition: same day Indications for Procedure: Microcalcifications of concern left breast Operative Findings: Microcalcifications of concern in specimen Description of Procedure: Marlen is a 43-year-old female who underwent a mammogram. She was noted to have microcalcifications of concern in the periareolar region of her left breast. She was recommended to undergo stereotactic core biopsy. The patient was brought to the stereotactic core biopsy room. She was positioned in the upright chair. A green coffee blender film was obtained. The area of concern was identified. The lesion was targeted. The breast was prepped using chlorhexidine. A 9 gauge vacuum-assisted core rotating biopsy needle was driven to the correct coordinates. A prefire film was obtained. The needle was noted to be in the correct location. The needle was fired. A post fire film was obtained. The needle was noted to be in the correct location. Core biopsy specimens were obtained. Radiograph of the specimens revealed the calcifications of concern had been adequately sampled. A marking clip was deployed and left behind. The patient tolerated the procedure in stable condition. Breast was anesthetized using 1% lidocaine 20 cc. The patient will follow-up with Dr. Richardson in 1 week. Specimen was sent to pathology. [facility]
== END | disposition home or self-care (01) ==
LOC: RADMAMWWP 07:21
PROVIDERS: ATTEND Surgery
DX: R92.8 Other abnormal and inconclusive findings on diagnostic imaging of breast (principal); Z98.82 Breast implant status; Z80.3 Family history of malignant neoplasm of breast
CPT/HCPCS: 88305; 88341; 19081; A4648; J2003

== ENCOUNTER → 2024-04-08 | Outpatient (CLI) | payer BC ==
[2024-04-08 10:23] VITALS: BP 117/76; PULSE 75; RESP 17; TEMP 98.9
--- NOTE | 2024-04-08 10:26 | P.PN ---
Subjective Progress Note Date: 04/08/24 Principal diagnosis: DCIS left breast DCIS left breast Requesting physician: Jalil Cho History of present illness: Is a 43-year-old female seen in consultation for Dr. Bowers regarding a radiographic abnormality in the left breast. She underwent a bilateral screening mammogram on 02-10-2024. This revealed a new group of loosely clustered microcalcifications in the retroareolar left breast. Additional views were recommended. The additional views of the left breast were performed on 02-24-2024. This revealed grouped heterogeneous calcifications spanning 2.5 cm within the lateral subareolar left breast. This was felt to be BI-RADS 4 and stereotactic core biopsy was recommended. The mammograms were personally reviewed and interpreted and discussed with Dr. Jacome from radiology. This was found on a routine mammogram. She is not complaining of any new lumps masses or nodules of concern in either breast. She is not complaining of any nipple discharge or skin changes. She has not had any recent trauma or infection in the breast. She has never had any breast biopsies or surgery on her breast. status post stero biopsy on 04-01-24, (+) DCIS, reviewed with radiology, clip in the correct location about 1.6 mm area of concern She tolerated the procedure without difficulty. Caffeine: coffee, pop, and energy drink daily drink coffee all day long nicotine: 1/2 PPD and also vapes; hs been smoking since 1995 chocolate: occasional BCP: used shot for 1 year hormones: not yet but is having hot flashes Family History: patient had a hysterectomy pre cancer mother: cervical cancer maternal great grandmother: breast cancer twice Hormonal History: menarche: 15 , breast fed: no, age at first : 18 periods stopped after an ablation in her 30's is having hot flashes now had a partial hysterectomy , done for pre-cancer cells Surgical History: hysterectomy gallbladder two major left ear reconstruction 8 tubes both ears Medical History: arthritis compressed disc lower back with scoliosis bipolar; depression, ADHD Social History: nicotine: as above alcohol: none drugs: none Review of Systems - Constitutional Reports sweats - EENT Eyes: denies blurred vision Ears: bilateral: decreased hearing, tinnitus Ears, nose, mouth and throat: Reports headache - Breasts bilateral: as per HPI - Cardiovascular Denies chest pain, Denies shortness of breath - Respiratory Reports as per HPI, Reports cough - Gastrointestinal Reports as per HPI - Genitourinary Genitourinary: Denies dysuria, Denies hematuria Menstruation: Reports post hysterectomy - Musculoskeletal Reports as per HPI - Integumentary Reports pruritus, Reports unusual bruising, Denies rash - Neurological Reports headaches, Denies syncope - Psychiatric Reports as per HPI - Endocrine Reports fatigue, Reports weight change - Hematologic/Lymphatic Reports easy bruising - Allergic/Immunologic Reports as per HPI, Reports seasonal allergies Past Medical History Past Medical History: No Reported History Additional Past Medical History / Comment(s): pre-canerous cells uterus, arthritis luis knees, hearing loss luis ears, begining stages of carpal tunnel luis wrists History of Any Multi-Drug Resistant Organisms: None Reported Past Surgical History: Ear Surgery, Hysterectomy, Tubal Ligation, Uterine Ablation Additional Past Surgical History / Comment(s): ear surgery. Left ear viktor nstruction surgery 1986. Past Anesthesia/Blood Transfusion Reactions: No Reported Reaction, Postoperative Nausea & Vomiting (PONV) Past Psychological History: ADD/ADHD, Bipolar, Depression Additional Psychological History / Comment(s): refuses medication other than Prozac Smoking Status: Current every day smoker, Vaper Past Alcohol Use History: Rare Additional Past Alcohol Use History / Comment(s): 1 ppd Past Drug Use History: None Reported Medications and Allergies Home Medications Medication Instructions Recorded Confirmed Type Cholecalciferol [Vitamin D3] 5,000 unit PO DAILY 11/03/16 04/01/24 History traMADol HCl [Ultram] 50 mg PO Q6H PRN #20 tab 07/31/19 04/01/24 Rx FLUoxetine HCL [PROzac] 20 mg PO DAILY 02/25/24 04/01/24 History Fluticasone Nasal [place] [Flonase 2 spray EA NOSTRIL BID 02/25/24 04/01/24 History Nasal [place]] Allergies Allergy/AdvReac Type Severity Reaction Status Date / Time Milk Containing Products Allergy congestion Verified 04/01/24 07:47 (Dairy) [Dairy] pollen extracts Allergy congestion Verified 04/01/24 07:47 wheat Allergy congestion Verified 04/01/24 07:47 hydromorphone [From Dilaudid] AdvReac Nausea & Verified 04/01/24 07:47 Vomiting Objective - Constitutional General appearance: Present: cooperative - EENT Eyes: Present: EOMI ENT: Present: hearing grossly normal - Neck Neck: Present: normal ROM - Respiratory Respiratory: bilateral: CTA - Cardiovascular Rhythm: regular Heart sounds: normal: S1, S2 - Integumentary Integumentary: Present: normal turgor - Musculoskeletal Musculoskeletal: Present: gait normal - Psychiatric Psychiatric: Present: A&O x's 3, appropriate affect, intact judgment & insight - Additional findings Additional findings: Breast Exam: [id number]:38D Inspection: Bilateral grade 3 ptosis Palpation: Right breast: Multi positional exam fibrocystic changes no discrete dominant masses or nodules of concern Right axilla: No adenopathy of concern Left breast: Multi positional exam fibrocystic changes no discrete dominant masses or nodules of concern Left axilla: No adenopathy of concern tattoing over upper extermities Assessment and Plan Assessment: Impression: Microcalcifications of concern left breast on mammogram performed 02-10-2024/diagnostic mammogram of left breast 02-24-2024 Biopsy 1 25/DCIS left breast Plan: presentation of case ot tumor board probable needle localization lumpevtomy The results are discussed with her and her boyfriend. CC: Dr Cho
== END ==
LOC: WWCWWP 10:04
PROVIDERS: ATTEND Surgery
DX: D05.12 Intraductal carcinoma in situ of left breast (principal); R92.0 Mammographic microcalcification found on diagnostic imaging of breast; R92.8 Other abnormal and inconclusive findings on diagnostic imaging of breast; F17.210 Nicotine dependence, cigarettes, uncomplicated; Z80.3 Family history of malignant neoplasm of breast; Z91.011 Allergy to milk products; Z91.018 Allergy to other foods; Z88.5 Allergy status to narcotic agent; Z88.8 Allergy status to other drugs, medicaments and biological substances

== ENCOUNTER → 2024-06-02 | Outpatient (CLI) | payer BC ==
[2024-06-02 09:42] VITALS: BP 111/70; PULSE 72; RESP 16; TEMP 98.3
--- NOTE | 2024-06-02 09:53 | P.BCPN ---
Subjective Progress Note Date: 06/02/24 Subjective Progress Note Date: Principal diagnosis: DCIS left breast DCIS left breast Requesting physician: Jalil Cho History of present illness: Is a 43-year-old female seen in consultation for Dr. Bowers regarding a radiographic abnormality in the left breast. She underwent a bilateral screening mammogram on 02-10-2024. This revealed a new group of loosely clustered microcalcifications in the retroareolar left breast. Additional views were recommended. The additional views of the left breast were performed on 02-24-2024. This revealed grouped heterogeneous calcifications spanning 2.5 cm within the lateral subareolar left breast. This was felt to be BI-RADS 4 and stereotactic core biopsy was recommended. The mammograms were personally reviewed and interpreted and discussed with Dr. Jacome from radiology. This was found on a routine mammogram. She is not complaining of any new lumps masses or nodules of concern in either breast. She is not complaining of any nipple discharge or skin changes. She has not had any recent trauma or infection in the breast. She has never had any breast biopsies or surgery on her breast. status post stero biopsy on 04-01-24, (+) DCIS, reviewed with radiology, clip in the correct location about 1.6 mm area of concern She tolerated the procedure without difficulty. Case presented at tumor board and 04-19-2024. The patient was called with the recommendations. The patient has a retroareolar DCIS which is approximately 1.5 cm from the nipple areolar complex. We have discussed taking the nipple areolar complex versus leaving it in a central lumpectomy and the patient would like it to be taken as she thinks that there would be less risk of having to come back for more surgery. I have discussed with her that I may very safely be able to leave that but at this time she would like to have a central lumpectomy and have this removed. We are awaiting genetic testing that is going to be done on 04 26 24 Genetic testing: VUS Caffeine: coffee, pop, and energy drink daily drink coffee all day long nicotine: 1/2 PPD and also vapes; hs been smoking since 1995 chocolate: occasional BCP: used shot for 1 year hormones: not yet but is having hot flashes Family History: patient had a hysterectomy pre cancer mother: cervical cancer maternal great grandmother: breast cancer twice Hormonal History: menarche: 15 , breast fed: no, age at first : 18 periods stopped after an ablation in her 30's is having hot flashes now had a partial hysterectomy , done for pre-cancer cells Surgical History: hysterectomy gallbladder two major left ear reconstruction 8 tubes both ears Medical History: arthritis compressed disc lower back with scoliosis bipolar; depression, ADHD Social History: nicotine: as above alcohol: none drugs: none Review of Systems - Constitutional Reports sweats - EENT Eyes: denies blurred vision Ears: bilateral: decreased hearing, tinnitus Ears, nose, mouth and throat: Reports headache - Breasts bilateral: as per HPI - Cardiovascular Denies chest pain, Denies shortness of breath - Respiratory Reports as per HPI, Reports cough - Gastrointestinal Reports as per HPI - Genitourinary Genitourinary: Denies dysuria, Denies hematuria Menstruation: Reports post hysterectomy - Musculoskeletal Reports as per HPI - Integumentary Reports pruritus, Reports unusual bruising, Denies rash - Neurological Reports headaches, Denies syncope - Psychiatric Reports as per HPI - Endocrine Reports fatigue, Reports weight change - Hematologic/Lymphatic Reports easy bruising - Allergic/Immunologic Reports as per HPI, Reports seasonal allergies Past Medical History Past Medical History: No Reported History Additional Past Medical History / Comment(s): pre-canerous cells uterus, arthritis luis knees, hearing loss luis ears, begining stages of carpal tunnel luis wrists History of Any Multi-Drug Resistant Organisms: None Reported Past Surgical History: Ear Surgery, Hysterectomy, Tubal Ligation, Uterine Ablation Additional Past Surgical History / Comment(s): ear surgery. Left ear reconstruction surgery 1986. Past Anesthesia/Blood Transfusion Reactions: No Reported Reaction, Postoperative Nausea & Vomiting (PONV) Past Psychological History: ADD/ADHD, Bipolar, Depression Additional Psychological History / Comment(s): refuses medication other than Prozac Smoking Status: Current every day smoker, Vaper Past Alcohol Use History: Rare Additional Past Alcohol Use History / Comment(s): 1 ppd Past Drug Use History: None Reported Medications and Allergies Home Medications Medication Instructions Recorded Confirmed Type Cholecalciferol [Vitamin D3] 5,000 unit PO DAILY 11/03/16 04/01/24 History traMADol HCl [Ultram] 50 mg PO Q6H PRN #20 tab 05/10/20 01/10/25 Rx FLUoxetine HCL [PROzac] 20 mg PO DAILY 02/25/24 04/01/24 History Fluticasone Nasal Lander [Flonase 2 spray EA NOSTRIL BID 02/25/24 04/01/24 Histor y Nasal Lander] Allergies Allergy/AdvReac Type Severity Reaction Status Date / Time Milk Containing Products Allergy congestion Verified 04/01/24 07:47 (Dairy) [Dairy] pollen extracts Allergy congestion Verified 04/01/24 07:47 wheat Allergy congestion Verified 04/01/24 07:47 hydromorphone [From Dilaudid] AdvReac Nausea & Verified 04/01/24 07:47 Vomiting Objective - Constitutional General appearance: Present: cooperative - EENT Eyes: Present: EOMI ENT: Present: hearing grossly normal - Neck Neck: Present: normal ROM - Breast Breast-Narrative: Breast Exam: BRA:38D Inspection: Bilateral grade 3 ptosis Palpation: Right breast: Multi positional exam fibrocystic changes no discrete dominant masses or nodules of concern Right axilla: No adenopathy of concern Left breast: Multi positional exam fibrocystic changes no discrete dominant masses or nodules of concern Left axilla: No adenopathy of concern tattoing over upper extermities Bra Size: 38D Ptosis: Grade 3: Right Breast Ptosis, Left Breast Ptosis Breast: left: normal Right Breast Palpation (Multi-positional): No dominant masses, Fibrocystic Changes Left Breast Palpation (Multi-positional): No dominant masses, Fibrocystic Change s Right Axilla Palpation: No adenopathy of concern Left Axilla Palpation: No adenopathy of concern - Respiratory Respiratory: bilateral: CTA - Cardiovascular Rhythm: regular Heart sounds: normal: S1, S2 - Gastrointestinal General gastrointestinal: Present: soft - Integumentary Integumentary Comment(s): tatooing Integumentary: Present: normal turgor - Musculoskeletal Musculoskeletal: Present: gait normal - Psychiatric Psychiatric: Present: A&O x's 3, appropriate affect, intact judgment & insight Assessment and Plan Plan: Impression: Microcalcifications of concern left breast on mammogram performed 02-10-2024/diagnostic mammogram of left breast 02-24-2024 Biopsy 04 01 24/DCIS left breast Plan: presentation of case at tumor board/ done left breast needle localization lumpectomy possible oncoplastic tissue transfer left breast to be done via a central lumpectomy clearance Dr. Cho The results are discussed with her and her boyfriend. She presently takes tramadol daily and will not need a prescription for pain medicine. Risk and benefits of the procedure discussed with the patient and her boyfriend. Risk include but are not limited to bleeding, infection, reaction to the anesthetic. If margins were to be positive then further tissue acquisition may be necessary. She is going to have removal of the nipple areolar complex and understands that this will not grow back. CC: Dr Cho Prep Education Provided - Preoperative Education Given Pre-Op Kit Given Date: 06/02/24 - Functional Assessment Performed?: Yes Referal Provided?: No - Smoking Cessation Education Provided?: Yes (educated to stop)
== END ==
LOC: WWCWWP 09:22
PROVIDERS: ATTEND Surgery
DX: D05.12 Intraductal carcinoma in situ of left breast (principal); R92.0 Mammographic microcalcification found on diagnostic imaging of breast; F17.210 Nicotine dependence, cigarettes, uncomplicated; Z91.011 Allergy to milk products; Z91.018 Allergy to other foods; Z88.5 Allergy status to narcotic agent; Z91.030 Bee allergy status

== ENCOUNTER 2024-06-14 08:17 | Day surgery (SDC) | payer BC ==
[~2024-06-14 08:17] MED LIST changes: -ALPRAZolam 0.25 MG TAB PO PRN; +METHYLENE BLUE 50 MG/10 ML VIAL MISCELLANE ONE
[2024-06-14] MEDS: ACETAMINOPHEN TAB 500 MG TAB PO PRN (08:49)
[2024-06-14] MEDS: LACTATED RINGERS 1,000 ML IV SCH (09:11)
[2024-06-14] MEDS: ALPRAZolam 0.5 MG TAB PO STA (09:11)
[2024-06-14] MEDS: IV FLUID CONTINUATION 1,000 ML IV ONE (09:12)
[2024-06-14] MEDS: LIDOCAINE 1% INJ 10MG/ML (20 ML MDV) SQ ONE ×3 (09:46→12:27)
[2024-06-14] MEDS: SODIUM BICARB 8.4% 50 ML VIAL (1 MEQ/ML) MISCELLANE ONE (09:46)
[2024-06-14] MEDS: METHYLENE BLUE 50 MG/10 ML VIAL MISCELLANE ONE (09:55)
[2024-06-14] MEDS: DEXAMETHASONE SOD PHOSPHATE 4 MG/ML 1 ML VIAL IV ONE (10:12)
[2024-06-14] MEDS: ONDANSETRON 4 MG/2 ML VIAL IVP ONE (10:12)
[2024-06-14] MEDS: HEPARIN SODIUM,PORCINE 5,000 UNIT/ML 1 ML VIAL SQ PRN (10:13)
--- NOTE | 2024-06-14 11:14 | P.NAPBC ---
NAPBC Queries - NAPBC Queries Was patient's case review presented at [facility] tumor board? If no, comment.: Yes Was patient's pathology reviewed at [facility]? If no, comment.: Yes Was breast conservation surgery offered? If no, comment.: Yes Was sentinel node biopsy offered? If no, comment.: No (DCIS not recommended) Was diagnosis confirmed by percutaneous core biopsy? If no, comment.: Yes Is patient mastectomy patient?: No Clinical Stage: staage 0 DCIS
[2024-06-14] MEDS ORDERED: ePHEDrine 50 MG/ML 1 ML VIAL ONE (11:45)
[2024-06-14] MEDS ORDERED: SUCCINYLCHOLINE CHLORIDE 200 MG/10 ML VIAL IV ONE (11:45)
[2024-06-14] MEDS ORDERED: LIDOCAINE 1% INJ 10MG/ML (20 ML MDV) ONE (11:45)
[2024-06-14] MEDS ORDERED: LIDOCAINE 4% LTA KIT (4 ML) TOPICAL ONE (11:45)
[2024-06-14] MEDS ORDERED: WATER FOR INJECTION, STERILE 10 ML VIAL IV ONE (11:45)
[2024-06-14] MEDS ORDERED: PROPOFOL 10 MG/ML 20 ML VIAL IV ONE (11:45)
[2024-06-14] MEDS ORDERED: PHENYLEPHRINE-0.9% NACL SYG 1,000 MCG/10 ML SYRINGE ONE (11:45)
[2024-06-14] MEDS ORDERED: fentaNYL (PF) 50 MCG/ML 2 ML AMP ONE (11:45)
[2024-06-14] MEDS ORDERED: diphenhydrAMINE 50 MG/ML 1 ML VIAL ONE (11:45)
--- NOTE | 2024-06-14 12:53 | P.BCAON ---
Date of Procedure: 06/14/24 Preoperative Diagnosis: DCIS left breast Postoperative Diagnosis: Same Procedure(s) Performed: Left breast needle localization lumpectomy, oncoplastic tissue transfer 54 cm Anesthesia: FILIBERTOA Surgeon: Alva Villagomez Estimated Blood Loss (ml): 5 IV fluids (ml): 600 Pathology: other (Breast tissue) Condition: stable Disposition: same day Indications for Procedure: Biopsy-proven left breast DCIS Operative Findings: Fibrofatty breast tissue Description of Procedure: The patient was seen in the radiology department for needle positioning of the clip of concern in the microcalcifications was performed. 1 cc of half percent methylene blue was injected into the site. Following this the patient was brought to the operative suite. In the operating suite following induction of anesthesia the left breast was prepped and draped in a sterile fashion. An incision was made around the nipple areolar complex and a central lumpectomy was performed with excision of the tissue localized by the wire localization as well as the blue tissue noted on methylene blue. Wide excision was performed. After reassured that hemostasis was attained titanium clips were placed in the cavity. Surgicel in powder form was placed. A superior pillar 7 x 3 cm was formed in the subcutaneous tissue. An inferior pillar 5 x 3 cm was formed in the subcutaneous tissue. The cavity itself was 6 x 3 cm. The superior and inferior pillar were brought together and secured using 3-0 Vicryl suture. Total oncoplastic tissue transfer was 54 cm. The deep tissues were closed using 3-0 Vicryl suture. The skin was closed using 4-0 Monocryl. 20 cc of 1% lidocaine was injected into the incision. Surgical glue was applied. The patient tolerated the procedure in stable condition. All instrument and sponge counts were correct at the end of the case.
[2024-06-14 13:19] VITALS: TEMP 96.9
--- NOTE | 2024-06-14 13:22 | MM ---
Electronically signed and approved by: Ho Dorantes M.D. Radiologis
[2024-06-14 14:43] VITALS: BP 112/60; PULSE 89; RESP 18
--- NOTE | 2024-06-22 11:19 | MM ---
Prior Study Comparison: 06/15/2017 Bilateral Screening Mammogram, [facility]. 02/10/2024 Bilateral MG 3D screening mammo w/cad, [facility]. 02/24/2024 Left MG 3D work up w/cad LT, [facility]. Pathology Description: Approach: Lateral to Medial Needle Type: 5 cm Kopan The procedure of needle localization with wire placement and than surgical excision was explained to the patient. Benefits, alternatives, and risks were discussed. An informed consent was then obtained. The shortest pathway for procedure was chosen. Shortest pathway was lateral approach. The overlying skin was prepped and draped in usual sterile fashion. Lidocaine buffered with bicarbonate was used as anesthetic into the skin and subcutaneous tissue up to the level of area of concern. A 5 cm needle was used. It was placed via a lateral approach under mammographic guidance. Subsequent 90 degrees mammogram show the needle to be in satisfactory position relative to the targeted area. At this point, wire was placed and the needle was withdrawn. The wire was fixed to patient's skin. Images were marked for surgeon. The patient tolerated the procedure well without any immediate complication. The patient was kept in the radiology department for short stay after the procedure and then taken to surgery for surgical excision. Targeted surgical clip and wire are identified in specimen mammogram. The patient was kept in hospital for short stay after the procedure and then discharged home in stable condition. Impression: Successful, uncomplicated needle localization with wire placement and surgical excision of surgical clip in the left breast, full pathology results to follow. [facility], , 06/14/2024 12:37 PM. Pathology Results: Result: Malignant, Ductal carcinoma in situ, comedo type. Pathology and radiology were reviewed. Findings are concordant. LEFT BREAST, LUMPECTOMY: High grade ductal carcinoma in situ (DCIS) with focal comedo necrosis, microcalcification and lobular extension (see Surgical Pathology Cancer Case Summary and comment). All margins negative for DCIS with DCIS very close to and less than 1 mm from inferior margin. Overall Assessment: Malignant Management: Surgical Consultation of the left breast. Electronically signed and approved by: Ho Dorantes M.D. Radiologis
== END 2024-06-14 15:07 | disposition home or self-care (01) ==
LOC: OR 08:17
PROVIDERS: ATTEND Surgery
DX: D05.12 Intraductal carcinoma in situ of left breast (principal); M41.9 Scoliosis, unspecified; G89.4 Chronic pain syndrome; J45.909 Unspecified asthma, uncomplicated; F06.4 Anxiety disorder due to known physiological condition; F32.A Depression, unspecified; F90.9 Attention-deficit hyperactivity disorder, unspecified type; M17.0 Bilateral primary osteoarthritis of knee; G56.03 Carpal tunnel syndrome, bilateral upper limbs; H91.93 Unspecified hearing loss, bilateral; F17.210 Nicotine dependence, cigarettes, uncomplicated; F17.290 Nicotine dependence, other tobacco product, uncomplicated; Z90.710 Acquired absence of both cervix and uterus; Z90.49 Acquired absence of other specified parts of digestive tract; Z98.51 Tubal ligation status; Z79.899 Other long term (current) drug therapy; Z88.8 Allergy status to other drugs, medicaments and biological substances
CPT/HCPCS: 88307; 76098; 19281; 19301; C1819; J0330; J1200; J1644; J1100; J0690; J2405; J2003; J3010; J2704; Q9968; J2371

== ENCOUNTER → 2024-06-23 | Outpatient (CLI) | payer BC ==
--- NOTE | 2024-06-23 11:43 | P.BCPO ---
Progress Note - Text Progress Note Date: 06/23/24 Patient status post left breast lumpectomy on 06-14-24. Her pathology revealed DCIS. The inferior margin was less than 1 mm. All other margins were negative. The largest size of the lesion was 17 mm. Examination: Lungs: Clear Incision: Clean and dry Seroma at the lumpectomy site Heart regular rate and rhythm Impression: Patient doing well postoperative seroma at lumpectomy site Plan: Aspiration seroma Presentation of case at tumor board secondary to proximity of the inferior margin less than 1 mm Patient to follow-up in 2 weeks Appointment medical oncology/patient has DCIS Appointment radiation oncology Following informed consent the area of concern in the left breast was prepped using alcohol. An 18-gauge needle and a 20 cc syringe was used to aspirate 115 cc of serous fluid. There appeared to be complete resolution of the seroma. The patient tolerated the procedure in stable condition. Post Op Education - Post Op Education Post Op Education Provided Date: 06/23/24 - Functional Assessment Performed?: Yes (arm abduction passed) Referal Provided?: No Path Report - Was patient given path report? Path Report Date Given: 06/23/24
[2024-06-23 11:44] VITALS: BP 118/79; PULSE 68; RESP 16; TEMP 98.1
== END ==
LOC: WWCWWP 11:15
PROVIDERS: ATTEND Surgery
DX: D05.10 Intraductal carcinoma in situ of unspecified breast (principal); Z98.890 Other specified postprocedural states; Z91.011 Allergy to milk products; Z91.048 Other nonmedicinal substance allergy status; Z88.5 Allergy status to narcotic agent

== ENCOUNTER → 2024-07-08 | Outpatient (CLI) | payer BC ==
[2024-07-08 10:27] VITALS: BP 123/82; PULSE 69; RESP 18; TEMP 97.9
--- NOTE | 2024-07-08 11:00 | P.PN ---
Subjective Progress Note Date: 07/08/24 Principal diagnosis: left breast DCIS Progress Note - Text Progress Note Date: 07/08/24 Patient status post left breast lumpectomy on 06-14-24. Her pathology revealed DCIS. The inferior margin was less than 1 mm. All other margins were negative. The largest size of the lesion was 17 mm. Case presented at tumor board on secondary to close inferior margin. It was felt that this was only at the inferior margin and after discussion at tumor board the patient was not recommended to have further surgical resection. I have called the patient with the information and left a message on her answering machine. She does need an appointment with medical and radiation oncology. I should see her here in 1 week to follow for seroma. note Dr. Hood 06-28-24 reviewed; appointment radiation oncology 07-20-34; endocrine therapy to follow radiation genetic testing pending Examination: Lungs: Clear Incision: Clean and dry Seroma at the lumpectomy site resolved Heart regular rate and rhythm seroma aspirated on 06-23-24 115 cc straw colored fluid Impression: Patient doing well postoperative seroma at lumpectomy site Plan: I have had a long conversation regarding radiation therapy and endocrine therapy with the patient andh her fiance and at this time she does not want either. She would like to have bilateral mastectomies. She is going to have clearance with Dr. Cho Patient encouraged to stop smoking will schedule for surgery August 23, and pre-op appointment Additional CC's: Jalil Cho Objective - Vital Signs Vital signs: Vital Signs Temp 97.9 F 07/08/24 10:23 Pulse 69 07/08/24 10:23 Resp 18 07/08/24 10:23 BP 123/82 07/08/24 10:23 Pulse Ox 99 07/08/24 10:23 FiO2 Intake & Output 07/07/24 07/08/24 07/08/24 18:59 06:59 18:59 Weight 78.925 kg
== END ==
LOC: WWCWWP 09:38
PROVIDERS: ATTEND Surgery
DX: D05.12 Intraductal carcinoma in situ of left breast (principal); Z98.890 Other specified postprocedural states

== ENCOUNTER 2024-08-23 07:02 | Day surgery (SDC) | payer BC ==
[~2024-08-23 07:02] MED LIST changes: -METHYLENE BLUE 50 MG/10 ML VIAL MISCELLANE ONE; +MIDAZOLAM 2 MG/2 ML VIAL IV PRN
[2024-08-23] MEDS: LACTATED RINGERS 1,000 ML IV SCH (07:45)
[2024-08-23] MEDS: IV FLUID CONTINUATION 1,000 ML IV ONE ×4 (07:45→11:37)
[2024-08-23] MEDS: LIDOCAINE 1% (10MG/ML) FOR IV START INTRADERMA PRN (07:45)
[2024-08-23] MEDS: DEXAMETHASONE SOD PHOSPHATE 4 MG/ML 1 ML VIAL IV ONE (08:28)
[2024-08-23] MEDS: HEPARIN SODIUM,PORCINE 5,000 UNIT/ML 1 ML VIAL SQ PRN (08:28)
[2024-08-23] MEDS: ACETAMINOPHEN TAB 500 MG TAB PO PRN (08:28)
[2024-08-23] MEDS: ONDANSETRON 4 MG/2 ML VIAL IVP ONE (08:28)
[2024-08-23] MEDS ORDERED: PROPOFOL 10 MG/ML 20 ML VIAL IV ONE (08:40)
[2024-08-23] MEDS ORDERED: fentaNYL (PF) 50 MCG/ML 2 ML AMP ONE (08:40)
[2024-08-23] MEDS ORDERED: ROCURONIUM 10 MG/ML (5 ML VIAL) IV ONE (08:40)
[2024-08-23] MEDS ORDERED: MIDAZOLAM 2 MG/2 ML VIAL ONE (08:40)
[2024-08-23] MEDS ORDERED: SUCCINYLCHOLINE CHLORIDE 200 MG/10 ML VIAL IV ONE (08:40)
[2024-08-23] MEDS ORDERED: PHENYLEPHRINE 10 MG/ML VIAL ONE (08:40)
[2024-08-23] MEDS ORDERED: KETAMINE HCL IN 0.9 % NACL 50 MG/5 ML SYRINGE ONE (08:40)
[2024-08-23] MEDS ORDERED: ePHEDrine 50 MG/ML 1 ML VIAL ONE (08:40)
[2024-08-23] MEDS ORDERED: VASOPRESSIN 20 UNIT/ML 1 ML VIAL ONE (08:40)
--- NOTE | 2024-08-23 08:48 | P.NAPBC ---
NAPBC Queries - NAPBC Queries Was patient's case review presented at [facility] tumor board? If no, comment.: Yes Was patient's pathology reviewed at [facility]? If no, comment.: Yes Was breast conservation surgery offered? If no, comment.: Yes Was sentinel node biopsy offered? If no, comment.: No Was diagnosis confirmed by percutaneous core biopsy? If no, comment.: Yes Is patient mastectomy patient?: Yes Was a preop referral to reconstructive surgeon offered?: No (patient declined) Clinical Stage: bonnie 0 left DCIS
[2024-08-23] MEDS: LIDOCAINE 1% INJ 10MG/ML (10 ML MDV) SQ ONE ×2 (09:10→12:08)
[2024-08-23] MEDS: ceFAZolin 2 GM in DEXTROSE 5% IN WATER 50 ML IVPB PRN (09:10)
--- NOTE | 2024-08-23 11:39 | P.BCAON ---
Date of Procedure: 08/23/24 Preoperative Diagnosis: Left breast DCIS Postoperative Diagnosis: Same Procedure(s) Performed: Bilateral mastectomy Anesthesia: MICHAEL Surgeon: Alva Villagomez Estimated Blood Loss (ml): 30 IV fluids (ml): 1,700 Pathology: other (Bilateral breast) Condition: stable Disposition: same day Indications for Procedure: DCIS left breast prior excision with close margin Operative Findings: Dense breast tissue Description of Procedure: The patient is a 43-year-old female who had a needle localization and excisional lumpectomy of the left breast for DCIS. The inferior margin was close and the patient was given the option of conservative treatment with hormone therapy and radiation therapy. She declined and instead wished for bilateral mastectomies. The patient was brought to the operative suite and following induction of anesthesia both breasts were prepped and draped in a sterile fashion. The right breast was approached initially. Markings were placed for skin incision. A superior flap and inferior flap were developed. The tissue was dissected down to the pectoralis muscle. The breast was brought off the pectoralis muscle being careful to maintain hemostasis using the electrocautery device as well as the harmonic scalpel. Following this the wound was examined for hemostasis. The wound was well irrigated. After reassured that hemostasis was attained a #10 YENIFER drain was placed. The drain was secured using a nylon suture. The skin flaps were evaluated and additional tissue was taken from the flaps. After this the subcutaneous tissue was closed using interrupted 3-0 Vicryl suture. This was followed by a running 3-0 Vicryl suture and a 4-0 Monocryl. Following this the wound was examined for hemostasis. The left breast was then approached. Markings were placed for skin incision. A superior flap and inferior flap were developed. The tissue was dissected down to the pectoralis muscle. The breast was brought off the pectoralis muscle being careful to maintain hemostasis using the electrocautery device as well as the harmonic scalpel. Following this the wound was examined for hemostasis. The wound was well irrigated. After we were assured that hem ostasis was attained a #10 YENIFER drain was placed. The drain was secured using a nylon suture. The skin flaps were evaluated and additional tissue was taken from the flaps. After this the subcutaneous tissue was closed using interrupted 3-0 Vicryl suture. This was followed by a running 3-0 Vicryl suture and a 4-0 Monocryl. Surgicel in powder form was placed in both sides prior to closure of the incisions. The right side was completely closed prior to starting on the left side. Surgical glue was placed following closure after 10 cc of 1% lidocaine were placed on each side. The patient tolerated the procedure in stable condition. All instrument and sponge counts were correct at the end of the case. - Sentinal Node Biopsy Operation performed with curative intent: Yes Tracer(s) used in upfront surgery (non-neoadjuvant): N/A Tracer(s) used in the neoadjuvant setting: N/A - Axillary Lymph Node Dissection Operation performed with curative intent: No
[2024-08-23] MEDS ORDERED: NALOXONE 0.4 MG/ML 1 ML VIAL IV PRN (11:40)
[2024-08-23] MEDS: fentaNYL (PF) 50 MCG/ML 2 ML AMP IVP PRN (13:25)
[2024-08-23] MEDS: SODIUM CHLORIDE 0.9% 1,000 ML IV SCH (14:54)
[2024-08-23] MEDS: HEPARIN SODIUM,PORCINE 5,000 UNIT/ML 1 ML VIAL SQ SCH (15:10)
[2024-08-23] MEDS: traMADol 50 MG TAB PO PRN (15:10)
[2024-08-24 01:24] VITALS: RESP 16
[2024-08-24] MEDS: MORPHINE SULFATE 2 MG/ML SYRINGE IVP STA (05:24)
[2024-08-24 06:50] LABS: Basophils # (A) 0.02 10*3/uL (0.00-0.10); Basophils % (A) 0.2 %; Eosinophils # (A) 0.12 10*3/uL (0.04-0.35); HCT 35.3 % (37.2-46.3); HGB 11.9 g/dL (12.0-15.0); Lymphocytes # (A) 1.21 10*3/uL (0.90-5.00); Lymphocytes % (A) 10.2 %; MCH 32.8 pg (27.0-32.0); MCHC 33.7 g/dL (32.0-37.0); MCV 97.2 fL (80.0-97.0); Mean Platelet Volume 11.5 fL (9.5-12.2); Monocytes # (A) 0.76 10*3/uL (0.20-1.00); Monocytes % (A) 6.4 %; Neutrophils # (A) 9.72 10*3/uL (1.80-7.70); Neutrophils % (A) 81.8 %; Platelet Count 169 10*3/uL (140-440); RBC 3.63 10*6/uL (4.10-5.20); RDW 12.7 % (11.5-14.5); WBC 11.88 10*3/uL (4.50-10.00)
[2024-08-24] MEDS: ONDANSETRON 4 MG/2 ML VIAL IVP PRN (08:33)
[2024-08-24] MEDS: HYDROmorphone 1 MG/ML 1 ML SYRINGE IVP PRN (08:34)
--- NOTE | 2024-08-24 09:12 | P.PN ---
Subjective Progress Note Date: 08/24/24 Principal diagnosis: Postop day #1 bilateral mastectomies Marlen is a 43-year-old female status post bilateral mastectomies postop day #1. She is tolerating diet without difficulty. She complained of back pain last night but this is under control at this time. She is not complaining of incisional pain. She has a history of chronic back pain. Objective - Vital Signs Vital signs: Vital Signs Temp 98.8 F 08/24/24 00:15 Pulse 90 08/24/24 00:15 Resp 16 08/24/24 00:15 BP 106/63 08/24/24 00:15 Pulse Ox 94 L 08/23/24 16:15 FiO2 Intake & Output 08/23/24 08/24/24 08/24/24 18:59 06:59 18:59 Intake Total 1650 Output Total 765 50 Balance 885 -50 Weight 79.4 kg Intake: IV 1650 Output: Drainage 35 50 Left 15 25 Right 20 25 Urine 700 Estimated Blood Loss 30 Other: # Voids 1 2 - Constitutional General appearance: Present: cooperative - EENT Eyes: Present: EOMI ENT: Present: hearing grossly normal - Neck Neck: Present: normal ROM - Respiratory Respiratory: bilateral: CTA - Cardiovascular Rhythm: regular Heart sounds: normal: S1, S2 - Integumentary Integumentary Comment(s): Incision clean and dry bilateral, YENIFER output 25 cc right and left serous in nature - Musculoskeletal Musculoskeletal: Present: gait normal - Psychiatric Psychiatric: Present: A&O x's 3, appropriate affect, intact judgment & insight - Labs CBC & Chem 7: 08/24/24 06:25 Labs: Abnormal Lab Results - Last 24 Hours (Table) 08/24/24 Range/Units 06:25 WBC 11.88 H (4.50-10.00) 10*3/uL RBC 3.63 L (4.10-5.20) 10*6/uL Hgb 11.9 L (12.0-15.0) g/dL Hct 35.3 L (37.2-46.3) % MCV 97.2 H (80.0-97.0) fL MCH 32.8 H (27.0-32.0) pg Immature Gran # 0.05 H (0.00-0.04) 10*3/uL Neutrophils # 9.72 H (1.80-7.70) 10*3/uL Assessment and Plan Assessment: Impression: Patient doing well postoperative Plan: Discharge home to be followed by Dr. Richardson as an outpatient Teach patient drain care
[2024-08-24 09:46] VITALS: BP 134/78; PULSE 88; TEMP 99.2
== END 2024-08-24 12:00 | disposition home or self-care (01) ==
LOC: OR 07:02 → 4FBP 12:08 → OR 08-24 12:00
PROVIDERS: ATTEND Surgery
DX: D05.12 Intraductal carcinoma in situ of left breast (principal); Z17.0 Estrogen receptor positive status [ER+]; Z17.21 Progesterone receptor positive status; G89.4 Chronic pain syndrome; M48.56XA Collapsed vertebra, not elsewhere classified, lumbar region, initial encounter for fracture; M41.86 Other forms of scoliosis, lumbar region; M54.40 Lumbago with sciatica, unspecified side; F31.81 Bipolar II disorder; F90.9 Attention-deficit hyperactivity disorder, unspecified type; F06.4 Anxiety disorder due to known physiological condition; F17.210 Nicotine dependence, cigarettes, uncomplicated; F17.290 Nicotine dependence, other tobacco product, uncomplicated; Z79.899 Other long term (current) drug therapy; Z80.3 Family history of malignant neoplasm of breast; Z91.011 Allergy to milk products; Z88.5 Allergy status to narcotic agent; Z91.018 Allergy to other foods
CPT/HCPCS: 19303; 85025; 88342; 88307; 88341; J2250; J0330; J1644 ×2; J1100; J0690; J2405 ×2; J3010; J2270; J1171; J2704; J2371; J2003

== ENCOUNTER → 2024-09-01 | Outpatient (CLI) | payer BC ==
[2024-09-01 12:23] VITALS: BP 115/77; PULSE 93; RESP 17; TEMP 98.4
--- NOTE | 2024-09-01 12:31 | P.BCPO ---
Progress Note - Text Progress Note Date: 09/01/24 Marlen is status post bilateral mastectomies on 08-23-24. The left breast no residaul tumor. The right breast invasive ductal cancer G1. 9 mm. [id number]. All margins (-). Left breast 17 mm area of DCIS with close inferior margin. This was resected on 06-14-24. Lungs: Clear Heart: Regular rate and rhythm Incision bilateral clean and dry YENIFER drains ready for removal right side less than 20 cc for 2 days in a row, left side approximately 20 cc for 2 days in a row Impression: Patient doing well postoperative Right breast stage I invasive ductal carcinoma, left breast DCIS Plan: Remove YENIFER drains I have discussed with the patient and her fianc that I will be gone for 2 weeks. If she has any questions or concerns during that time she will contact Dr. Rawls. Patient to follow-up with medical oncology Patient to have Case represented at tumor board secondary to the fact that there was an invasive component on the right side and no sentinel node biopsy was performed, we have discussed this and most likely this area will be followed clinically CC: DR. Cho
== END ==
LOC: WWCWWP 12:13
PROVIDERS: ATTEND Surgery
DX: D05.12 Intraductal carcinoma in situ of left breast (principal); F17.200 Nicotine dependence, unspecified, uncomplicated; Z98.890 Other specified postprocedural states; Z91.011 Allergy to milk products; Z91.018 Allergy to other foods; Z88.5 Allergy status to narcotic agent

== ENCOUNTER → 2024-09-21 | Outpatient (CLI) | payer BC ==
[2024-09-21 14:09] VITALS: BP 115/96; PULSE 86; RESP 17; TEMP 97.8
--- NOTE | 2024-09-21 14:22 | P.PN ---
Subjective Progress Note Date: 09/21/24 Principal diagnosis: post op bilateral mastectomies Progress Note - Text Progress Note Date: 09/21/24 Marlen is status post bilateral mastectomies on 08-23-24. The left breast no residual tumor. The right breast invasive ductal cancer G1. 9 mm. ER+Pr+ Her2 - All margins (-). Left breast 17 mm area of DCIS with close inferior margin. This was resected on 08-23-24. Patient's case presented at tumor board on 09 20 24. There was no re commendation for sentinel node biopsy. She was recommended however to follow-up with medical oncology. Lungs: Clear Heart: Regular rate and rhythm Incision bilateral clean and dry, bilateral seroma greater on the left than on the right Impression: Patient doing well postoperative Right breast stage I invasive ductal carcinoma, left breast DCIS/follow-up with medical oncology Oncotype to be done. Plan: Aspiration bilateral seroma Following informed consent the area of concern in the left chest wall was prepped using alcohol. An 18-gauge needle and a 20 cc syringe and then a 60 cc syringe was used to aspirate 104 cc of straw-colored fluid. The area on the right chest wall was then prepped using alcohol. An 18-gauge needle and a 20 cc syringe was used to aspirate 35 cc of straw-colored fluid. There was complete resolution of both seromas. Follow-up with medical oncology Follow-up here in 1 week CC: DR. Cho Additional CC's: Jalil Cho Objective - Vital Signs Vital signs: Intake & Output 09/20/24 09/21/24 09/21/24 18:59 06:59 18:59 Weight 76.204 kg
== END ==
LOC: WWCWWP 13:59
PROVIDERS: ATTEND Surgery
DX: D05.12 Intraductal carcinoma in situ of left breast (principal); F17.200 Nicotine dependence, unspecified, uncomplicated; Z91.011 Allergy to milk products; Z91.018 Allergy to other foods; Z88.8 Allergy status to other drugs, medicaments and biological substances; Z98.890 Other specified postprocedural states

== ENCOUNTER → 2024-09-30 | Outpatient (CLI) | payer BC ==
--- NOTE | 2024-09-30 11:38 | P.BCPO ---
Progress Note - Text Progress Note Date: 09/30/24 Subjective Progress Note Date: 09/30/24 Principal diagnosis: post op bilateral mastectomies Progress Note - Text Progress Note Date: Marlen is status post bilateral mastectomies on 08-23-24. The left breast no residual tumor. The right breast invasive ductal cancer G1. 9 mm. ER+Pr+ Her2 - All margins (-). Left breast 17 mm area of DCIS with close inferior margin. This was resected on 08-23-24. Patient's case presented at tumor board on 09 20 24. There was no recommendation for sentinel node biopsy. She was recommended however to follow- up with medical oncology. She had bilateral seroma aspiration approximately 1 week ago. The left mastectomy site had 60 cc of straw-colored fluid, and the right mastectomy site had 35 cc of straw-colored fluid. lungs: clear heart: RRR Incision bilateral clean and dry, bilateral seroma greater on the left than on the right Impression: Patient doing well postoperative Right breast stage I invasive ductal carcinoma, left breast DCIS/follow-up with medical oncology Oncotype to be done. Plan: Aspiration bilateral seroma Following informed consent the area of concern in the left chest wall was p repped using alcohol. An 18-gauge needle and a 20 cc syringe and then a 45 cc syringe was used to aspirate 104 cc of straw-colored fluid. The area on the right chest wall was then prepped using alcohol. An 18-gauge needle and a 20 cc syringe was used to aspirate 12 cc of straw-colored fluid. There was complete resolution of both seromas. Follow-up with medical oncology Follow-up here in 1 month CC: DR. Cho Additional CC's: Jalil Cho
[2024-09-30 12:00] VITALS: BP 133/78; PULSE 90; RESP 17; TEMP 97.7
== END ==
LOC: WWCWWP 11:18
PROVIDERS: ATTEND Surgery
DX: C50.912 Malignant neoplasm of unspecified site of left female breast (principal); F17.200 Nicotine dependence, unspecified, uncomplicated; Z91.018 Allergy to other foods; Z91.011 Allergy to milk products; Z88.5 Allergy status to narcotic agent; Z91.030 Bee allergy status